=== PATIENT | male | born 1960 | race Caucasian/White ===

== ENCOUNTER 2024-07-24 02:29 | Emergency (ER) | payer MEDICAID ==
[~2024-07-24] VITALS: Ht 167.6 cm; Wt 69.0 kg
[2024-07-24 02:32] VITALS: BP 109/67; PULSE 98; RESP 18; TEMP 36.7; O2SAT 98
[2024-07-24 05:13] LABS: BASOPHILS % 0.6 % (0.0-2.0); EOSINOPHILS % 1.4 % (0.0-5.0); HEMATOCRIT. 35.2 % (42.0-52.0); HEMOGLOBIN. 11.7 g/dL (14.0-18.0); LYMPHOCYTES % 23.9 % (20.0-50.0); MEAN CORPUSCULAR HEMOGLOBIN 30.6 pg (28.0-32.0); MEAN CORPUSCULAR HGB CONC 33.3 g/dL (31.0-37.0); MEAN CORPUSCULAR VOLUME 91.8 fL (80.0-94.0); MEAN PLATELET VOLUME 6.6 fl (7.4-10.4); MONOCYTES % 4.6 % (2.0-8.0); NEUTROPHILS % 69.5 % (40.0-76.0); PLATELET 299 x1000/uL (130-400); RED BLOOD CELL COUNT 3.83 mill/uL (4.7-6.1); RED CELL DISTRIBUTION WIDTH 14.8 % (11.6-14.6); WHITE BLOOD COUNT 7.2 x1000/uL (4.5-11.0)
[2024-07-24 05:44] LABS: CHLORIDE 112 mEq/L (98-107); POTASSIUM 3.8 mEq/L (3.5-5.1); SODIUM 147 mEq/L (136-145)
[2024-07-24 05:45] LABS: CALCIUM 8.2 mg/dL (8.7-10.4); CARBON DIOXIDE 24 mEq/L (21-32)
[2024-07-24 05:50] LABS: CREATININE 0.8 mg/dL (0.6-1.3); GLUCOSE 128 mg/dL (70-105); UREA NITROGEN BLOOD 9 mg/dL (9-23)
[2024-07-24 05:51] LABS: ETHANOL BLOOD 221 mg/dL (<10)
[2024-07-24 05:52] LABS: ACETAMINOPHEN < 2 ug/mL (10-30); ALANINE AMINOTRANSFERASE 21 IU/L (10-49); ALBUMIN 3.7 g/dL (3.2-4.8); ASPARTATE AMINOTRANSFERASE 13 IU/L (<34)
[2024-07-24 05:53] LABS: BILIRUBIN TOTAL 0.3 mg/dL (0.1-1.0); PROTEIN TOTAL 6.4 g/dL (6.0-8.3)
[2024-07-24 06:03] LABS: BILIRUBIN DIRECT < 0.1 mg/dL (<=3.0)
== END 2024-07-24 06:39 | disposition home or self-care (01) ==
LOC: ER 02:52 → EDBD 02:52 → ER 06:39
DX: R46.2 Strange and inexplicable behavior (principal); Z79.899 Other long term (current) drug therapy; Z20.822 Contact with and (suspected) exposure to COVID-19
CPT/HCPCS: 36415; 80048; 80076; 80307; 80320; 80329; 85025; 87426; 99283; G0480